=== PATIENT | female | born 1995 | race Caucasian/White ===

== ENCOUNTER 2024-08-07 19:56 | Emergency (ER) | payer OTHER ==
[2024-08-07 20:03] VITALS: BP 114/72; PULSE 71; RESP 20; TEMP 98.4; BMI 23.3
== END 2024-08-07 23:01 | disposition home or self-care (01) ==
LOC: JER 19:56
DX: O99.891 Other specified diseases and conditions complicating pregnancy (principal); M79.605 Pain in left leg; O36.8120 Decreased fetal movements, second trimester, not applicable or unspecified; Z3A.14 14 weeks gestation of pregnancy; V43.92XA Unspecified car occupant injured in collision with other type car in traffic accident, initial encounter; Y92.410 Unspecified street and highway as the place of occurrence of the external cause
CPT/HCPCS: 76801-TC; 99284-25